=== PATIENT | female | born 1955 | race Caucasian/White ===

== ENCOUNTER → 2023-11-03 10:32 | Outpatient (REF) | payer MEDICARE, OTHER, SELFPAY | LOC: HWRAD 10:32 | PROVIDERS: ATTENDING PHYSICIAN Internal Medicine Endocrinology, Diabetes & Metabolism; FAMILY PHYSICIAN Family Medicine | DX: Z85.850 Personal history of malignant neoplasm of thyroid (principal); E03.9 Hypothyroidism, unspecified | CPT/HCPCS: 76536 ==

== ENCOUNTER → 2024-07-04 16:18 | Outpatient (REF) | payer MEDICARE, OTHER, SELFPAY | LOC: WDC 16:18 | PROVIDERS: ATTENDING PHYSICIAN Obstetrics & Gynecology Gynecology; FAMILY PHYSICIAN Family Medicine | DX: Z12.31 Encounter for screening mammogram for malignant neoplasm of breast (principal) | CPT/HCPCS: 77063; 77067 ==

== ENCOUNTER → 2024-08-06 12:00 | Outpatient (REF) | payer MEDICARE, OTHER, SELFPAY | LOC: DHSLP 12:00 | PROVIDERS: ATTENDING PHYSICIAN Internal Medicine; FAMILY PHYSICIAN Internal Medicine Cardiovascular Disease | DX: G47.33 Obstructive sleep apnea (adult) (pediatric) (principal) | CPT/HCPCS: 95800 ==

== ENCOUNTER 2024-10-05 14:19 | Inpatient (IN) | payer MEDICARE, OTHER, SELFPAY ==
[2024-10-05] VITALS (35 sets, daily range): BP systolic 166–234; BP diastolic 72–153; PULSE 105; BMI 37.8
--- NOTE | 2024-10-05 11:33 | ED.GENMED ---
History of Present Illness
<PK Bach - Last Filed: 10/05/24 15:47>
General
Chief Complaint: Musculo-Skeletal Complaint
Source: patient
Exam Limitations: none
Time Seen by Provider: 10/05/24 11:24
Nursing documentation reviewed up to this point in time: agreed with
History of Present Illness
History of Present Illness:
Patient is a 69-year-old female brought by EMS. Patient was walking down the steps twisted her left leg and complains of left knee pain. Patient denies actually falling denies hitting her head. Patient complains of a lot of pain in her left knee.
Past History
<PK Bach - Last Filed: 10/05/24 15:47>
Past History
ED Past Medical History: Other (Hypertension, , carpal tunnel release �2)
Social History
Tobacco: Non-smoker
Alcohol: None
Family History
Family History: Other (Father with breast cancer, dementia, hypertension, sister with lung cancer)
Review of Systems
<PK Bach - Last Filed: 10/05/24 15:47>
Review of Systems
Allergies reviewed?: Yes
All Other Systems: ROS reviewed and negative except as documented in HPI and ROS
Constitutional: Reports no symptoms
Respiratory: Reports no symptoms
Cardiac: Reports no symptoms
ABD/GI: Reports no symptoms
Musculoskeletal: Reports other (left knee pain )
Skin: Reports no symptoms
Neurological: Reports no symptoms
Psychiatric: Reports no symptoms
Phy Exam
<PK Bach - Last Filed: 10/05/24 15:47>
General Physical Exam
General Presentation: mild distress
General age: appears stated age
General Skin: warm and dry
General Habitus: obese
General Hydration: appears well hydrated
Neurological Exam
Neurological Exam: alert and oriented x3
Musculoskeletal Exam
Musculoskeletal Exam: other (Obvious deformity to left lower extremity/knee no lacerations or abrasions; strong distal PT/DP pulses normal distal sensation)
Skin Exam
Skin Exam: normal color and warm/dry
Psychiatric Exam
Psychiatric Exam: normal mood/affect
Course
<PK Bach - Last Filed: 10/05/24 15:47>
Orders/Labs/Results
Orders:
Orders
10/05/24 11:24
CR Knee - Left 1 Or 2 Views Urgent
Comment:
Reason For Exam: portable left knee
10/05/24 11:32
HYDROmorphone [Dilaudid] 1 mg IV NOW STA
10/05/24 11:52
ASA Classification Routine
Knee Immobilizer Left-Treatmen ONCE
Propofol [Diprivan] 100 mg IV NOW STA
10/05/24 12:02
CR Knee - Left 1 Or 2 Views Urgent
Comment: portable
Reason For Exam: post reduction
10/05/24 12:29
Propofol [Diprivan] 20 ml .ROUTE .STK-MED
10/05/24 13:10
ORTHOPEDIC CONSULT Urgent
Consulting Provider: Juan Luis Brennan
Was physician already notified: Yes
10/05/24 13:18
Propofol [Diprivan] 20 ml .ROUTE .STK-MED
10/05/24 13:19
CBC/With Diff [Complete Blood Count/With Diff] Urgent
CMP [Comprehensive Metabolic Panel] Urgent
10/05/24 14:07
Admit/Transfer Patient As Directed
Co-Sign Provider:
Level of Care: Inpatient admission
Assign to:: Medical/Surgical
Physician / Group: belgica sinha
Diagnosis: fall left tib fib, knee dislocation
Reason for Hospitalization: fall left tib fib, knee dislocation
Expected length of stay greater than two midnights?: Yes
ELOS- Estimated Length of Stay in days: 3
I certify the patient meets the requirements for IP care: Yes
Code Status As Directed
Resuscitation Status: Full Code
10/05/24 14:11
PRN Pain Medication Management As Directed
May give lesser potent ordered pain med per pt: Yes
preference::
Protocol:: Medication orders for pain may be administered in a
manner that supports deferring to patient preference
when the pt is:
- Requesting an ordered lesser potent pain medication.
Least to most potent pain medications are defined
as: acetaminophen < NSAID < tramadol < opioids
(morphine, oxycodone, hydromorphone).
- Requesting a lesser dose of the same medication IF
ORDERED.
- Requesting a less intrusive route of administration
if both routes are prescribed by the provider (PO <
IV).
Abnormal Lab Results
10/05/24
13:19
WBC 12.5 H 10^3/uL
(4.8-10.8)
MPV 10.6 H fL
(7.4-10.4)
Abs Immat Gran (auto) 0.1 H 10^3/uL
(0-0.05)
Absolute Neuts (auto) 10.0 H 10^3/uL
(1.4-6.5)
Absolute Monos (auto) 0.8 H 10^3/uL
(0.1-0.6)
Neutrophils % 80.1 H %
(42.2-75.2)
Lymphocytes % 12.5 L %
(20.5-51.1)
Glucose 112 H mg/dl
(70-99)
10/05/24 13:19
10/05/24 13:19
Vital Signs
Initial and Last Documented VS:
Initial Vital Signs
Temp Pulse Resp
98.7 F 88 20
10/05/24 11:19 10/05/24 11:19 10/05/24 11:19
Last Documented Vital Signs
Temp Pulse Resp BP Pulse Ox
98.5 F 98 20 168/78 99
10/05/24 14:15 10/05/24 14:15 10/05/24 14:15 10/05/24 14:15 10/05/24 14:15
Broomcorn Scraper consulted with Physician
Broomcorn Scraper consulted with physician?: Yes
Name of Physician Consulted: Thor
<José Manuel Mcrae, DO - Last Filed: 10/05/24 12:07>
Orders/Labs/Results
Orders:
Orders
10/05/24 11:24
CR Knee - Left 1 Or 2 Views Urgent
Comment:
Reason For Exam: portable left knee
10/05/24 11:32
HYDROmorphone [Dilaudid] 1 mg IV NOW STA
10/05/24 11:52
ASA Classification Routine
Knee Immobilizer Left-Treatmen ONCE
Propofol [Diprivan] 100 mg IV NOW STA
10/05/24 12:02
CR Knee - Left 1 Or 2 Views Urgent
Comment: portable
Reason For Exam: post reduction
10/05/24 12:29
Propofol [Diprivan] 20 ml .ROUTE .STK-MED
10/05/24 13:10
ORTHOPEDIC CONSULT Urgent
Consulting Provider: Juan Luis Brennan
Was physician already notified: Yes
10/05/24 13:18
Propofol [Diprivan] 20 ml .ROUTE .STK-MED
10/05/24 13:19
CBC/With Diff [Complete Blood Count/With Diff] Urgent
CMP [Comprehensive Metabolic Panel] Urgent
10/05/24 14:07
Admit/Transfer Patient As Directed
Co-Sign Provider:
Level of Care: Inpatient admission
Assign to:: Medical/Surgical
Physician / Group: belgica sinha
Diagnosis: fall left tib fib, knee dislocation
Reason for Hospitalization: fall left tib fib, knee dislocation
Expected length of stay greater than two midnights?: Yes
ELOS- Estimated Length of Stay in days: 3
I certify the patient meets the requirements for IP care: Yes
Code Status As Directed
Resuscitation Status: Full Code
10/05/24 14:11
PRN Pain Medication Management As Directed
May give lesser potent ordered pain med per pt: Yes
preference::
Protocol:: Medication orders for pain may be administered in a
manner that supports deferring to patient preference
when the pt is:
- Requesting an ordered lesser potent pain medication.
Least to most potent pain medications are defined
as: acetaminophen < NSAID < tramadol < opioids
(morphine, oxycodone, hydromorphone).
- Requesting a lesser dose of the same medication IF
ORDERED.
- Requesting a less intrusive route of administration
if both routes are prescribed by the provider (PO <
IV).
Abnormal Lab Results
10/05/24
13:19
WBC 12.5 H 10^3/uL
(4.8-10.8)
MPV 10.6 H fL
(7.4-10.4)
Abs Immat Gran (auto) 0.1 H 10^3/uL
(0-0.05)
Absolute Neuts (auto) 10.0 H 10^3/uL
(1.4-6.5)
Absolute Monos (auto) 0.8 H 10^3/uL
(0.1-0.6)
Neutrophils % 80.1 H %
(42.2-75.2)
Lymphocytes % 12.5 L %
(20.5-51.1)
Glucose 112 H mg/dl
(70-99)
10/05/24 13:19
10/05/24 13:19
Vital Signs
Initial and Last Documented VS:
Initial Vital Signs
Temp Pulse Resp
98.7 F 88 20
10/05/24 11:19 10/05/24 11:19 10/05/24 11:19
Last Documented Vital Signs
Temp Pulse Resp BP Pulse Ox
98.5 F 98 20 168/78 99
10/05/24 14:15 10/05/24 14:15 10/05/24 14:15 10/05/24 14:15 10/05/24 14:15
Procedures
<PK Bach - Last Filed: 10/05/24 15:47>
Moderate Sedation
ASA Risk Score: Class III
Chart and allergies reviewed: Yes
Consent for anesthesia obtained: Yes
Time out completed (validating right patient & procedure): Yes
Moderate Sedation Start Time(when first medication is given): 11:58
History of difficult intubation: No
Airway free of obstruction: Yes
Patient has a gag reflex: Yes
Patient is able to open mouth: Yes
Patient has no dentures: Yes
Patient has no loose teeth: Yes
Medication administered by Provider during Moderate Sedation: IV Propofol (mg)
Total dose administered: 250
Time drug administered: 11:59
Moderate Sedation Procedure End Time: 12:50
Comment: 2nd sedation time Time out 1321; 1322:100 mg propofol given end time 1345
Joint/Fracture Reduction
Left Knee:
Indication for procedure:: knee dislocation acute lateral dislocation of left tibia fibula and patell
Procedure completed by: DR Mcrae /myself assisting
Consent form signed: Yes
If no, reason: Emergency procedure
Joint reduced: with anesthesia sedation
Injury was: closed
Further treatement: needs further treatment
Post reduction exam: stable
Capillary Refill: normal
Normal distal neurovascular exam?: Yes
<PK Bach - Last Filed: 10/05/24 15:47>
MDM/Problems Addressed
Differential Diagnosis Includes:
Not limited to knee dislocation, patellar dislocation
MDM/Problems Addressed:
11:40: Patient is a 69-year-old female who was walking down her steps twisted her left knee presents to the ER and discomfort. She did not actually fall.
Pt very uncomfortable with obvious deformity to left knee, portable x-ray ordered will give IV pain medication . + strong distal pulses w/ intact sensation
11:43: X-ray done shows lateral knee dislocation. ED physician at bedside viewed x-ray at bedside. ED physician d/c w/ ortho online content coordinator and vascular. Will plan for sedation and reduction.
Moderate sedation done with ED physician. xrays reviewed with ortho , still will need adtional reduction. ortho will come and attempt further reduction
1334: Patient was again sedated and orthopedic Dr. Brennan at bedside however will need to take patient to ER for further reduction and stabilization of this knee. Patient remains with strong pulses throughout the ER stay with warm foot and pink
toes pink foot. Vascular surgeon Dr. Ford also at bedside
<PK Bach - Last Filed: 10/05/24 15:47>
*Radiology
Radiology exam reviewed: radiology read reviewed
*Pulse Oximetry
Patient hypoxic: no
*Critical Care Note
Total Time (30-74mins, 75-104mins- exclusive of procedures): Not Applicable
<PK Bach - Last Filed: 10/05/24 15:47>
Patient Management
Discussion with other providers: Hand Singer (Orthopedic doctor DR Brennan and vascular DR Ford )
ED Attending Note
<PK Bach - Last Filed: 10/05/24 15:47>
-
Portions of this chart may have been created with voice recognition software.� Occasional wrong word or��sound alike� substitutions may have occurred due to the inherent limitations of voice recognition software.
<José Manuel Mcrae DO - Last Filed: 10/05/24 12:07>
ED Attending Note
Patient seen and examined by attending physician: Yes
I performed the substantive portion of visit, reviewed & personally made and approve the management plan that is documented in note by myself or RYDER.: Yes
ED Attending Note:
Seen with MEDICAL COLLECTOR examined independently patient with a twisting injury with a lateral knee dislocation has a strong pulse multiple drug allergies consent for reduction completed by myself
Discharge Plan
Departure
Patient Disposition: OR
Date of Disposition: 10/05/24
Time of Disposition: 13:39
Admit to: OR
Admit to doctor: mallory
Presentation/result/management discussed w/ accepting MD/DO: mallory
Patient with high blood pressure during this ER visit?: Yes
Condition: Fair
Covid-19: Not Applicable
Discharge Problem:
acute lateral knee dislocation
Interventions
Interventions:
*Risk Screen - Suicide Last Done: 10/05/24 11:19
*General Assessment Last Done: 10/05/24 11:19
*Neglect/Abuse Screening Last Done: 10/05/24 11:19
*ED COVID-19 Vaccine History Last Done: 10/05/24 11:30
*Nursing Disposition Last Done: 10/05/24 15:17
ED-Musculoskeletal Assessment Last Done: 10/05/24 11:30
ED- Neurological Assessment Last Done: 10/05/24 11:30
ED-Skin Assessment Last Done: 10/05/24 11:30
Discharge Date and Time
Discharge Date/Time: 10/05/24 15:18
[2024-10-05] MEDS: DILAUDID 1 MG IV ×2 (11:36→23:44)
[2024-10-05 13:27] LABS: % Basophils 0.3 % (0-2); % Eosinophils 0.5 % (0-6); % Immature Granulocytes 0.4 % (0-0.5); % Lymphocytes 12.5 % (20.5-51.1); % Monocytes 6.2 % (1.7-9.3); % Neutrophils 80.1 % (42.2-75.2); Absolute Eosinophils 0.1 10^3/uL (0-0.7); Absolute Immature Granulocytes 0.1 10^3/uL (0-0.05); Absolute Lymphocytes 1.6 10^3/uL (1.2-3.4); Absolute Monocytes 0.8 10^3/uL (0.1-0.6); Hematocrit 42.8 % (37.0-47.0); Hemoglobin 14.3 g/dL (12.0-16.0); Mean Corp Hgb Conc. 33.4 g/dL (33.0-37.0); Mean Corpuscular Hgb 28.1 pg (27.0-31.0); Mean Corpuscular Volume 84.1 fL (81.0-99.0); Mean Platelet Volume 10.6 fL (7.4-10.4); Nucleated Red Blood Cells % 0 %; Platelet Count 180 10^3/uL (130-400); Red Blood Cell Count 5.09 10^6/uL (4.20-5.40); White Blood Cell Count 12.5 10^3/uL (4.8-10.8)
--- NOTE | 2024-10-05 13:38 | HPS.HSE ---
Family Physician
-
Family Physician: NOT KNOW UNKNOWN - PT DOES
Chief Complaint
-
Fall down 12 steps left knee/tib-fib dislocation
History of Present Illness
69-year-old female, who lives alone in a two-story home who states this morning she was gathering her laundry she was at the top of the stairs some of the laundry fell out of the basket looped behind her leg causing her to fall down 10-12 steps
landing with her knee twisted and behind her on the floor. She states she had her cell phone in the back of her pocket where she was able to reach and call her son for help. This was approximately at 1030 this a.m. In the ER she was noted to have
dislocation of the left tibia, fibula and patella with attempted reduction x 2 unsuccessful. She will be taken to the OR for open reduction with external fixation. She denies headache, neck pain, bilateral wrist pain, back pain, chest pain,
palpitations, cough, shortness of breath, abdominal pain, nausea, vomiting, diarrhea, urinary symptoms. She currently has her left leg and a left knee Velcro brace with sensation intact to left lower extremity, +2 dorsal pedal pulse present skin
pink, warm.
She has PMH of HTN, HLD, GERD, colitis, uterine fibroids, thyroid nodule/thyroid CA January 2021 with left thyroidectomy of left side, March 2022 thyroidectomy of right side due to cancerous nodule resulting in complete thyroidectomy, Anxiety,
arthritis, obesity class I
Medical History
Past Medical History
Past Medical History: Reports Other
Additional Past Medical History:
HTN
GERD
colitis
uterine fibroids
anxiety
arthritis
Left thyroidectomy nodule removal 02/23/2021 secondary to thyroid cancerous nodule
Past Surgical History: Reports Other
Additional Past Surgical History:
section times 10/20/1986
Bilateral CTR
Left thyroidectomy nodule removal 02/23/2021 secondary to thyroid cancerous nodule
Social History
Tobacco: Non-smoker
Alcohol: None
Personal: Single
Living: Alone
Employment: Retired
Family History
Family History: Not pertinent
Allergies / Home Medications
Allergies reflects when Allergies were last updated in [facility].
Home Medications with original date entered in [facility]
Allergy/Medication List:
Allergies
Allergy/AdvReac Type Severity Reaction Status Date / Time
cefaclor [From Ceclor] Allergy Severe ITCHING Verified 10/05/24 11:19
AND HIVES
Penicillins Allergy Severe ITCHING Verified 10/05/24 11:19
AND HIVES
Sulfa (Sulfonamide Allergy Severe ITCHING Verified 10/05/24 11:19
Antibiotics) AND HIVES
levofloxacin [From Levaquin] Allergy Mild Itching Verified 10/05/24 11:19
vancomycin [From Vancocin] Allergy Mild RASH AND Verified 10/05/24 11:19
ITCHING
amoxicillin [From Augmentin] Allergy ITCHING Verified 10/05/24 11:19
AND HIVES
cephalexin [From Keflex] Allergy ITCHING Verified 10/05/24 11:19
AND HIVES
clavulanic acid Allergy ITCHING Verified 10/05/24 11:19
[From Augmentin] AND HIVES
shellfish derived Allergy ITCHING Verified 10/05/24 11:19
AND HIVES
Home Medications
ibuprofen 200 mg tablet 200 mg PO Q6HPRN PRN mild pain 02/05/21
levothyroxine 112 mcg tablet 112 mcg PO DAILY 10/05/24
lisinopril 20 mg tablet 20 mg PO BID 10/05/24
rosuvastatin 10 mg tablet 10 mg PO DAILY 10/05/24
Review of Systems
-
History Source: Patient and Family (Son at bedside)
A 12 point ROS was completed and negative except as noted: Yes
Constitutional: Denies Fever or Chills
EENT: Denies Sore Throat or Runny Nose
Respiratory: Denies Cough or Trouble Breathing
Cardiac: Denies Chest Pain, Palpitations or Syncope
Abdomen/GI: Denies Abdominal Pain, Nausea, Vomiting, Diarrhea, Constipated or Bloody Stools
: Denies Dysuria, Frequency, Flank Pain or Urgency
Musculoskeletal: Reports Joint Pain and Edema (Left knee swelling, left leg in a left knee Velcro brace with sensation intact to left lower extremity, +2 dorsal pedal pulse present skin pink, warm)
Skin: Denies Itching or Rash
Neurological: Denies Dizzy, Headache or Weakness
Endocrine: Reports No Symptoms
Hematologic/Lymphatic: Reports No Symptoms
Psych: Reports Calm
Physical Exam
Vital Signs
Vital Signs
Temp Pulse Resp BP Pulse Ox
98.6 F 82 14 187/98 100
10/05/24 11:58 10/05/24 12:30 10/05/24 12:30 10/05/24 12:30 10/05/24 12:30
Physical Exam
General: Comfortable, Conversant and Pain (Left knee); No Fever or Chills
HEENT: NormoCephalic, Anicteric, Moist mucous membranes, PERRLA, [place] Conjunctivae, No Ptosis and Neck Nontender
Respiratory: Clear; No Wheezes, Rales, Rhonchi or Crackles
Cardiac: S1/S2 and Regular Rhythm
Breast: Deferred by me
GI: Soft, Non Tender, Non Distended, Normal Bowel Sounds and No Hepatosplenomegaly
Rectal: Deferred by Provider
Genito-urinary: Deferred by me
Musculoskeletal: No Clubbing, No Cyanosis, Edema, Left Lower Extremity (Left knee swelling, left leg in a left knee Velcro brace with sensation intact to left lower extremity, +2 dorsal pedal pulse present skin pink, warm) and Other (Left knee
swelling, left leg in a left knee Velcro brace with sensation intact to left lower extremity, +2 dorsal pedal pulse present skin pink, warm); No Edema, Left Upper Extremity, Edema, Right Upper Extremity or Edema, Right Lower Extremity
Skin: Warm and Dry; No Rash
Neuro: No Sensory Deficits and Other (Drowsy post Propofol but oriented x 3,Left knee swelling, left leg in a left knee Velcro brace with sensation intact to left lower extremity, +2 dorsal pedal pulse present skin pink, warm); No Slurred Speech,
Tremors or Sedated
Psych: Calm
Laboratory Results
-
10/05/24 13:19
Impression/Plan
-
Impression/plan:
Admit to MedSurg
#Acute lateral dislocation left tibia, fibula, patella
-Reduction in ER with propofol and Dilaudid
-Consult Ortho
-N.p.o. for OR today for open reduction and external fixation
-Consult PT/OT/Case management as patient lives alone in two-story home
X-ray knee post reduction:
1. Persistent severe lateral subluxation of the proximal tibia with respect to the distal femoral condyles (improved following reduction of the lateral knee dislocation).
2. Severe patella baja.
3. Severe diffuse anterior soft tissue swelling and subcutaneous edema.
#HTN�benign
BP 187/98
-Continue lisinopril 20 mg twice daily
#thyroid nodule/thyroid CA January 2021 with left thyroidectomy of left side, March 2022 thyroidectomy of right side due to cancerous nodule resulting in complete thyroidectomy.
#HLD
-Continue Crestor
#GERD
-No reported meds
#Anxiety
-No reported meds
# Obesity class I�BMI 37.8
Affects all aspects of care
Recommend low-fat diet
Other PMH:
#Colitis
#Uterine fibroids
# arthritis
DVT prophylaxis
Aspirin 325 mg daily
Full code
[2024-10-05 13:46] LABS: ALT (SGPT) 19 U/L (0-35); AST (SGOT) 28 U/L (14-36); Albumin 4.1 g/dl (3.5-5.0); Alkaline Phosphatase 99 U/L (38-126); Blood Urea Nitrogen 14 mg/dl (7-17); Calcium 8.9 mg/dl (8.4-10.2); Carbon Dioxide 25 mmol/L (22-30); Chloride 107 mmol/L (98-107); Estimated Creatinine Clearance 90 ml/min; Glucose 112 mg/dl (70-99); Potassium 4.2 mmol/L (3.5-5.1); Sodium 140 mmol/L (135-145); Total Bilirubin 0.4 mg/dl (0.2-1.3); eGFR > 60.00
--- NOTE | 2024-10-05 13:54 | W.PN.UPDATE ---
Update Note
Progress Note Update
This note serves as an addendum to the H&P by financial services director RYDER
Lora RODOLFO
HPI
69F non smoker [facility] HX HTN seen at ER for evalaution of Lt knee pain
- preceeded by twisted the Lt leg while walking down the steps
- Immediately felt the severe Lt knee pain
- Patient denies actually falling denies hitting her head. P
- very anxious.
- No prior HX dislocation of knee
Failed 2 attempted reduction under sedation at ER
Planning for OR and open reduction per Ortho
PHX
, carpal tunnel release �2
Reviewed VS: afebrile BP 187/98
PE
Gen: Obese, in acute pain distress
HEENT: anicteric
Neck: supple
Lungs: CTA
Cor: RRR S1 S2
Abdomen: soft benign
TRANSITION TEACHER: AAO3 , NFND
MS: Lt knee;under immobilizer, swollen Lt frontal knees
Psych: appropriately anxious du e to acute pain
Data
WCC 12.5
Lt Knee XR
1. Persistent severe lateral subluxation of the proximal tibia with respect to the distal femoral condyles (improved following reduction of the lateral knee dislocation).
2. Severe patella baja.
3. Severe diffuse anterior soft tissue swelling and subcutaneous edema.
Lt Knee XR: ACUTE LATERAL DISLOCATION of the LEFT TIBIA, FIBULA, and PATELLA.
NO PRIOR hospitalist admission:
ASSESSMENT & PLAN
Acute dislocation of the Lt tibia , fibular and patella
Asso, with acute severe pain and deformity
Acute gait dysfunction
Intact neurovascular component per ER attd by Vascular evalaution
- Narcotic pain control PRN
- plan for sedation at OR for open reduction
Systolic HTN due to severe pain
- adequate pain control
- cont PC ANALYST Lisinopril
HX Total thyroidectomy for nodule POS fr CA
- cont. PC ANALYST LT4
DVT Px: full dose ASA
Full code
IP MS
--- NOTE | 2024-10-05 14:20 | CON.ORTHO ---
Consultation
-
Date/Time Consultation Requested: 05OCT2024 11:45
Date/Time Consultation Performed: 05OCT2024 13:40
Requesting Provider: José Manuel Mcrae DO
Performing Provider: Juan Luis Brennan MD
Reason for Consultation: left knee dislocation
Consultation - Orthopedics
History
Patient is a 69F complaining of several hours of left knee pain. She was carrying laundry downstairs when she slipped on a sweater and fell down 3 stairs, twisting her knee. She reported immediate pain and inability to ambulate. She was brought to
[facility] ER where she was diagnosed with a left knee dislocation. She was sedated and reduction was attempted, but this was unsuccessful. Orthopaedics was consulted for attempted reduction, but this was unsuccessful as well. Per report
from the emergency room and vascular surgery, her ÓSCAR was 1 and she had palpable DP and PT pulses.She denies numbness and tingling in her LLE, she states she has full motion of her toes, and does not have pain out of proportion to the injury. She
denies the use of blood thinners and reports hypertension and hypercholesteremia as her only medical problems.
Physical exam:
swelling and dimpling of the skin about the knee
posterior subluxation of the knee
no palpable tension of the patella tendon, suspicious for a patella tendon rupture
5/5 EHL/FHL
Anterior and posterior drawer positive
no end point with varus and valgus stress
palpable DP/PT pulses, brisk capillary refill, foot warm and well perfused
ÓSCAR: 200/190=1.05
sensation intact in all dermatomes
XRay examination demonstrates an external rotation dislocation of the knee
-after attempted reduction, the knee remain posterolaterally subluxed via Xray
Allergies / Home Medications
Allergy/AdvReac Type Severity Reaction Status Date / Time
cefaclor [From Ceclor] Allergy Severe ITCHING Verified 10/05/24 11:19
AND HIVES
Penicillins Allergy Severe ITCHING Verified 10/05/24 11:19
AND HIVES
Sulfa (Sulfonamide Allergy Severe ITCHING Verified 10/05/24 11:19
Antibiotics) AND HIVES
levofloxacin [From Levaquin] Allergy Mild Itching Verified 10/05/24 11:19
vancomycin [From Vancocin] Allergy Mild RASH AND Verified 10/05/24 11:19
ITCHING
amoxicillin [From Augmentin] Allergy ITCHING Verified 10/05/24 11:19
AND HIVES
cephalexin [From Keflex] Allergy ITCHING Verified 10/05/24 11:19
AND HIVES
clavulanic acid Allergy ITCHING Verified 10/05/24 11:19
[From Augmentin] AND HIVES
shellfish derived Allergy ITCHING Verified 10/05/24 11:19
AND HIVES
�Medication �Instructions �Recorded
ibuprofen 200 mg tablet 200 mg PO Q6HPRN PRN mild pain 02/05/21
levothyroxine 112 mcg tablet 112 mcg PO DAILY 10/05/24
lisinopril 20 mg tablet 20 mg PO BID 10/05/24
rosuvastatin 10 mg tablet 10 mg PO DAILY 10/05/24
Vital Signs / Lab Results
Temp Pulse Resp BP Pulse Ox
98.5 F 92 16 185/79 100
10/05/24 14:00 10/05/24 14:00 10/05/24 14:00 10/05/24 14:00 10/05/24 14:00
10/05/24 13:19
10/05/24 13:19
Assessment / Plan
Ms Tejada is a 69F with a left knee dislocation, suspected KD4 with injury to medial and lateral collateral ligaments and anterior and posterior cruciate ligaments with suspected patella tendon rupture
-due to the inability to reduce the knee with closed means, the patient will be brought to the operating room for open reduction and external fixation
-she will be admitted overnight for evaluation and PT evaluation in the morning
-she will be NWB to the E, and remain in the ex-fix for approximately 6 weeks and require ASA 325MG QD for DVT PPX
-pending OR today, consented, remain NPO, appreciate medical recommendations and risk stratification
-if ABIs become abnormal, recommend CT angio of the LLE and vascular surgery consult
--- NOTE | 2024-10-05 17:04 | W.IMMPOSTOP ---
Surgical Immed Post Op Note
-
Primary Surgeon: Juan Luis Brennan MD
Assisting Surgeon: Enedina coffey PA-C
Pre-op Diagnosis: left knee dislocation, possible patella tendon rupture
Post-op Diagnosis: left knee dislocation
Procedure Performed: closed reduction external fixation left knee
Anesthesia Type: general
Specimen / Cultures: none
Estimated Blood Loss: 5mL
Complications: none apparent
Operative Findings: KD 4, intact patella tendon
Implants: [place] Shabazz 3 external fixation system; 5.0mm Francis pins x4; 350mm bars x2; 150mm bar x1
Operative dictation number: [id number]
[2024-10-05] MEDS: DEMEROL 12.5 MG IV ×2 (17:09→17:57)
--- NOTE | 2024-10-05 18:28 | PTCARENOTE ---
Pt arrived to [facility] from PACU s/p closed reduction external fixation of the L knee. L knee external fixation intact, cintia wrap C/D/I, NV intact, +DP pulses. Pt AAOx3, and denies pain at this time. Cont. pulse ox attached, patient satting 95% on 2L
NC. Oriented to call goodwin and room, bed locked and in lowest position, call goodwin within reach.
[2024-10-05] MEDS: ASPIRIN 325 MG PO (20:06)
[2024-10-05] MEDS: ZESTRIL 20 MG PO (20:06)
[2024-10-05] MEDS: TYLENOL 650 MG PO (20:21)
[2024-10-05] MEDS: TRANDATE 52 MG IV (23:23)
[2024-10-06] VITALS (9 sets, daily range): BP systolic 143–209; BP diastolic 77–98; PULSE 90–106; O2SAT 94–99
[2024-10-06] MEDS: SYNTHROID 112 MCG PO (04:12)
[2024-10-06] MEDS: TYLENOL 650 MG PO ×3 (04:12→12:23)
[2024-10-06 05:13] LABS: % Basophils 0.1 % (0-2); % Immature Granulocytes 0.3 % (0-0.5); % Lymphocytes 10.8 % (20.5-51.1); % Monocytes 6.3 % (1.7-9.3); % Neutrophils 82.5 % (42.2-75.2); Absolute Monocytes 0.6 10^3/uL (0.1-0.6); Absolute Neutrophils 7.6 10^3/uL (1.4-6.5); Hematocrit 40.2 % (37.0-47.0); Hemoglobin 13.6 g/dL (12.0-16.0); Mean Corp Hgb Conc. 33.8 g/dL (33.0-37.0); Mean Corpuscular Hgb 28.2 pg (27.0-31.0); Mean Corpuscular Volume 83.2 fL (81.0-99.0); Mean Platelet Volume 10.8 fL (7.4-10.4); Nucleated Red Blood Cells % 0 %; Platelet Count 193 10^3/uL (130-400); Red Blood Cell Count 4.83 10^6/uL (4.20-5.40); Red Cell Dist. Width 11.9 % (11.5-14.5); White Blood Cell Count 9.2 10^3/uL (4.8-10.8)
[2024-10-06 05:36] LABS: Blood Urea Nitrogen 16 mg/dl (7-17); Calcium 8.6 mg/dl (8.4-10.2); Carbon Dioxide 27 mmol/L (22-30); Chloride 102 mmol/L (98-107); Estimated Creatinine Clearance 78 ml/min; Glucose 137 mg/dl (70-99); Potassium 4.3 mmol/L (3.5-5.1); Sodium 138 mmol/L (135-145); eGFR > 60.00
--- NOTE | 2024-10-06 07:09 | W.PN.HOSP.TC ---
Today's Communication/Plan
-
PT/OT, Aspirin DVT prophylaxis, PT/OT, Acute Rehab placement
Blood pressure and pain control
Assessment / Plan
Assessment / Plan
Physical Exam
General: Not in acute distress
HEENT: Normocephalic
Respiratory: Clear to Auscultation Bilaterally
Cardiac: S1/S2 and Regular Rhythm
GI: Soft, Non Tender, Non Distended, Normal Bowel Sounds
Musculoskeletal: No Cyanosis. LLE surgical dressings in place. LLE appears neurovascularly intact.
Neuro: AAOx3
Psych: Calm
Assessment/Plan
#Acute lateral dislocation left tibia, fibula, patella status post closed reduction, external fixation of left knee for left knee dislocation under the direction of Dr. Brennan
-Failed 2 attempts at reduction under sedation at ER therefore needed to go to the operating room
-Continue Aspirin 325mg daily for DVT prophylaxis x4 weeks
-Non weight bearing to left leg
-PT/OT
-Continue with pain management as needed
-Reinforce dressings as needed
-MRI left knee pending (Exfix is compatible with MRI)
#Hypertension
-Concern that this is being worsened by anxiety and pain
-Continue lisinopril 40 mg daily
-Added Amlodipine 5 mg BID
-As needed Hydralazine
-Low sodium diet
#Thyroid nodule/thyroid CA January 2021 with left thyroidectomy of left side, March 2022 thyroidectomy of right side due to cancerous nodule resulting in complete thyroidectomy.
-Continue Levothyroxine
#Hyperlipidemia
-Continue Crestor
#GERD
-No reported meds
#Anxiety
-No reported meds
#Obesity class I�BMI 37.8
Affects all aspects of care
Recommend low-fat diet
Additional Past Medical History
#Colitis
#Uterine fibroids
#Arthritis
DVT Prophylaxis: Aspirin 325 mg daily
Code Status: Full code
Anticipated Discharge: 24 - 48 hours
Subjective/Interval History
-
Date of Service: October 06, 2024
Patient was seen and examined. She denied any complaints.
Objective Data
-
Labs:
Laboratory Results
10/06/24
04:59
WBC 9.2
Hgb 13.6
Hct 40.2
Plt Count 193
Sodium 138
Potassium 4.3
Chloride 102
Carbon Dioxide 27
BUN 16
Creatinine 0.8
Glucose 137 H
Calcium 8.6
Vital Signs:
Vital Signs
Temp Pulse Resp BP Pulse Ox
97.8 F 88 16 183/94 96
10/06/24 03:35 10/06/24 03:35 10/06/24 03:35 10/06/24 03:35 10/06/24 03:35
I&O
10/05/24 10/06/24 10/07/24
06:59 06:59 06:59
Intake Total 540 / 540
Output Total 1700 / 1700
Balance -1160 / -1160
[2024-10-06] MEDS: ASPIRIN 325 MG PO (07:59)
[2024-10-06] MEDS: CRESTOR 10 MG PO (07:59)
[2024-10-06] MEDS: NORVASC 5 MG PO ×2 (08:04→19:41)
[2024-10-06] MEDS: MIRALAX PO (08:07)
[2024-10-06] MEDS: ZESTRIL 20 MG PO ×2 (08:09→15:24)
--- NOTE | 2024-10-06 08:48 | W.PN.ORTHO ---
Today's Communication / Plan
-
POD#1 closed reduction, external fixation of left knee for left knee dislocation under the direction of Dr. Brennan
--Non weight bearing to left leg
--PT/OT as able
--Continue with pain management as needed
--Reinforce dressings as needed
--Recommend aspirin 325mg daily for DVT prophylaxis x4 weeks
--MRI left knee pending. Exfix is compatible with MRI
--Orthopedics will continue to follow
Assessment
.
Distal Motor Intact: Yes
Dressing:
Clean, dry and intact.
Plan
.
Surgery / Date: Left knee spanning exfix 10/05/24 (Mika)
DVT Prophylaxis: Aspirin
Activity:
Out of bed.
PT/OT
Subjective
.
.:
Patient resting comfortably in bed this morning. She reports that her pain is well controlled.
Vital Signs and Labs
.
Vital Signs and Labs:
Lab Results
10/06/24 04:59
10/06/24 04:59
Temp Pulse Resp BP Pulse Ox
98.3 F 87 12 143/77 94
10/06/24 07:42 10/06/24 07:42 10/06/24 07:42 10/06/24 08:09 10/06/24 07:42
Physical Exam
-
Directed exam of LLE reveals surgical dressings in place. no strikethrough. able to plantarflex and dorsiflex the ankle. good PT and DP pulses. sensation intact to light touch. cap refill <2secs. ÓSCAR 1.1
--- NOTE | 2024-10-06 16:11 | CM ---
Met with pt and her son at bedside
Pt reports she lives alone in a 2 story home; 2 steps to enter, 20 steps to 2nd fl
Independent at baseline, employed PT
DME - none
SNF/HH - no past hx
PCP - James Clinton
Pharm - Guy
PT/OT - recs SNF. Discussed with pt, given PAC list to review with family
Plan - anticipate SNF when bed obtained and medically ready
[2024-10-06] MEDS: TYLENOL 1000 MG PO ×2 (16:37→23:25)
[2024-10-06] MEDS: APRESOLINE 5 MG IV ×2 (16:49→21:09)
[2024-10-06] MEDS: ROXICODONE 5 MG PO (22:23)
[2024-10-07] MEDS: FLUSH (NSS) 2 FLUSH IV (02:52)
[2024-10-07] MEDS: APRESOLINE 5 MG IV ×2 (02:52→12:28)
[2024-10-07 03:00] VITALS: BP 183/103
[2024-10-07] MEDS: SYNTHROID 112 MCG PO (06:33)
[2024-10-07 07:30] VITALS: BP 170/88
--- NOTE | 2024-10-07 07:45 | PTCARENOTE ---
MRI cancelled by [facility] as Ex Fix not compatible with MRI per radiology; patient notified.
[2024-10-07] MEDS: ZESTRIL 40 MG PO (08:02)
[2024-10-07] MEDS: ASPIRIN 325 MG PO (08:03)
[2024-10-07] MEDS: CRESTOR 10 MG PO (08:03)
[2024-10-07] MEDS: TYLENOL 1000 MG PO ×3 (08:03→23:35)
[2024-10-07] MEDS: NORVASC 5 MG PO ×2 (08:03→19:52)
[2024-10-07] MEDS: MIRALAX 17 GRAMS PO (08:07)
[2024-10-07 08:08] LABS: Mean Corp Hgb Conc. 33.3 g/dL (33.0-37.0); Mean Corpuscular Hgb 27.8 pg (27.0-31.0); Mean Corpuscular Volume 83.3 fL (81.0-99.0); Mean Platelet Volume 11.2 fL (7.4-10.4); Platelet Count 212 10^3/uL (130-400); Red Blood Cell Count 4.68 10^6/uL (4.20-5.40); Red Cell Dist. Width 12.7 % (11.5-14.5); White Blood Cell Count 9.6 10^3/uL (4.8-10.8)
[2024-10-07 08:43] LABS: Blood Urea Nitrogen 23 mg/dl (7-17); Calcium 8.8 mg/dl (8.4-10.2); Carbon Dioxide 25 mmol/L (22-30); Chloride 103 mmol/L (98-107); Estimated Creatinine Clearance 70 ml/min; Glucose 89 mg/dl (70-99); Magnesium 2.2 mg/dl (1.6-2.3); Potassium 4.1 mmol/L (3.5-5.1); Sodium 140 mmol/L (135-145); eGFR > 60.00
--- NOTE | 2024-10-07 09:00 | W.PN.ORTHO ---
Today's Communication / Plan
-
Appreciate the Hospitalist's care, continue Tx
Dispo per CM, appreciate their efforts
Strict NWB LLE with device
PT/OT as able
Pain control with ice/elevation/narcs as needed
Reinforce dressings as needed
ASA 325mg daily for DVT prophylaxis x 4 weeks
Radiology a bit resistant for MRI left knee with ex-fix in place. May need to arrange outpatient
Orthopedics will continue to follow
Assessment
.
Distal Motor Intact: Yes
Dressing:
Clean, dry and intact. Ex-fix and dressings in place LLE
Assessment:
POD#2 closed reduction, ex-fix placement for left knee dislocation
Overall doing/feeling well
Calf soft
Palpable pulses distally. Good foot/ankle motion. Good sensation
Plan
.
Surgery / Date: Left knee spanning exfix 10/05/24 (Mika)
DVT Prophylaxis: Aspirin
Activity:
Out of bed. Strict NWB LLE
PT/OT
Discharge Plan: Other (per CM)
Subjective
.
.:
Patient resting comfortably in bed. no significant LLE pain. Reportsgood feeling distally in the ankle, foot, and toes. reports good motion.
Vital Signs and Labs
.
Vital Signs and Labs:
Lab Results
10/07/24 07:32
10/07/24 07:32
Temp Pulse Resp BP Pulse Ox
98.2 F 113 18 170/103 95
10/07/24 07:30 10/07/24 08:03 10/07/24 07:30 10/07/24 08:03 10/07/24 07:30
[2024-10-07 11:35] VITALS: BP 162/87
[2024-10-07 15:34] VITALS: BP 132/75
--- NOTE | 2024-10-07 16:58 | CON.MD ---
Consultation - Medical
-
Referring Provider:�Dr. Mitchell Gregg
Chief Complaint:�Left tib-fib dislocation after fall
�
History of Present Illness:�69-year-old female with PMH (as below) presented to [facility] on 10/05/2024 after a fall down 12 steps with a left tib-fib dislocation. She was getting her laundry at the top of the stairs and some laundry fell
out of a basket lift behind her leg and caused her to fall. Unable to reduce x 2 requiring an ORIF with external fixation. Nonweightbearing in the left lower extremity. Patient with uncontrolled hypertension. Orthopedics recommending MRI of the
left leg with external fixator being MRI compatible although radiology is hesitant to do it per notes. Overall patient is feeling anxious, with elevated blood pressure. She is not clear about how long she will have to continue to have the external
fixator on for. She would like to get home and manage at home and not go to a skilled rehab facility if possible.
�
Past Medical History:�HTN, HLD, GERD, colitis, uterine fibroids, thyroid nodule, thyroid cancer, anxiety, arthritis, obesity
Procedure History:�Left thyroidectomy, right thyroidectomy, section, bilateral carpal tunnel release
Family History:�None pertinent
�
Social History:�
Functional Level Premorbidly:�Independent with all activities�
Functional Level Currently:�Min assist transfers, min assist ambulating 10 feet x 1 with rolling walker. Min assist lower extremity dressing.
�
Tobacco:�Denies�
Alcohol:�Denies�
Drug use:�Denies�
�
Lives with:�Alone
24-hour assistance available:�No
Number of floors:�2
# steps to enter:�Full flight
# steps to second floor: Full flight
Potential First floor set up:�Possibly
Driving:�Yes
Occupation:�Retired
�
Allergies:�
Allergy/AdvReac Type Severity Reaction Status Date / Time
cefaclor [From Ceclor] Allergy Severe ITCHING Verified 10/05/24 11:19
AND HIVES
Penicillins Allergy Severe ITCHING Verified 10/05/24 11:19
AND HIVES
Sulfa (Sulfonamide Allergy Severe ITCHING Verified 10/05/24 11:19
Antibiotics) AND HIVES
levofloxacin [From Levaquin] Allergy Mild Itching Verified 10/05/24 11:19
vancomycin [From Vancocin] Allergy Mild RASH AND Verified 10/05/24 11:19
ITCHING
amoxicillin [From Augmentin] Allergy ITCHING Verified 10/05/24 11:19
AND HIVES
cephalexin [From Keflex] Allergy ITCHING Verified 10/05/24 11:19
AND HIVES
clavulanic acid Allergy ITCHING Verified 10/05/24 11:19
[From Augmentin] AND HIVES
shellfish derived Allergy ITCHING Verified 10/05/24 11:19
AND HIVES
�
Review of Systems:�
Constitutional: (x) abNormal _fatigue
Eye: (x) Normal _
Ear/Nose/Throat: (x) Normal _
Respiratory: (x) Normal _
Cardiovascular: (x) Normal _
Gastrointestinal: (x) abNormal _constipation
Genitourinary: (x) Normal _
Musculoskeletal: (x) abNormal _left leg pain
Integumentary: (x) abNormal _left leg incision
Neurologic: (x) Normal _denies any numbness or tingling in the left leg
Psychiatric: (x) abNormal _anxiety about having external fixator on, falling down the stairs, what is going to, the future
Endocrine: (x) Normal _
Hematologic/Lymphatic: (x) Normal _
Allergic/Immunologic: (x) Normal _
�
Medications:�
Active Current Visit Medication List
Category Date Time Status
Acetaminophen [Tylenol] Med 10/06/24 16:00 Active
1,000 mg PO Q8H
Amlodipine [Norvasc] Med 10/06/24 20:00 Active
5 mg PO BID
Aspirin Med 10/05/24 18:00 Active
325 mg PO DAILY
Bisacodyl [Dulcolax] Med 10/05/24 16:18 Active
10 mg RECTAL [id number] PRN
Docusate W/Senna [Senokot-S] Med 10/05/24 16:18 Active
1 tablet PO BIDPRN PRN
Flush (0.9% Sodium Chloride) [Flush (Nss)] Med 10/05/24 15:00 Active
See Dose Instructions IV PER PROTOCOL
HYDROmorphone [Dilaudid] Med 10/05/24 16:18 Active
1 mg IV Q4HPRN PRN
HydrALAZINE [Apresoline] Med 10/06/24 15:21 Active
5 mg IV Q4HPRN PRN
Levothyroxine [Synthroid] Med 10/06/24 06:00 Active
112 mcg PO DAILY@0600
Lisinopril [Zestril] Med 10/07/24 08:00 Active
40 mg PO DAILY
Ondansetron Injectable [Zofran] Med 10/05/24 16:18 Active
4 mg IV Q6HPRN PRN
Oxycodone [Roxicodone] Med 10/05/24 16:18 Active
5 mg PO Q4HPRN PRN
Polyethylene Glycol Powder [Miralax] Med 10/06/24 08:00 Active
17 grams PO DAILY
Polyethylene Glycol Powder [Miralax] Med 10/05/24 16:18 Active
17 grams PO DAILYPRN PRN
Rosuvastatin Calcium [Crestor] Med 10/06/24 08:00 Active
10 mg PO DAILY
�
Vitals:�
Temp Pulse Resp BP Pulse Ox
98.0 F 101 16 132/75 98
10/07/24 15:34 10/07/24 15:34 10/07/24 15:34 10/07/24 15:34 10/07/24 15:34
Height 5 ft 4 in
Actual Weight 99.8 kg
Body Mass Index (BMI) 37.8
�
Physical Exam:�
General Appearance/Observation: Well-developed, well-nourished female in no apparent distress.�
Pain/Comfort Assessment: Moderate left leg pain
Mood/Affect: Appropriate�
�
Integumentary/Operative Site:�External fixator sites not evaluated.
Eyes: Conjunctiva/Lids: normal���� Pupils: pupils equal round and reactive to light and Accommodation�
Ears/Nose/Throat: oral mucosa moist,� throat clear.������������ Lips/Teeth/Gums: normal�
Cardiovascular: Heart: regular, no murmur�
Pulses: dorsalis pedis 2+ right, 1+ on left more difficult with swelling
Respiratory: Respiratory Effort/Chest Expansion: normal������� Auscultation: Clear to auscultation bilaterally�
Gastrointestinal: abdomen not tender, no distension, normal abdominal bowel sounds
Genitourinary: No Turk�
Extremities:�Edema: Left lower extremity edema�cyanosis: None�Trophic�changes: None
�
Neurology Exam:
Orientation: Alert, Oriented to self, Time, Place�
Memory: Intact for recent medical concerns
Comprehension: Intact
Two step command: Intact
Cranial Nerves:
�� CNII:�Pupillary light reflex: Intact����
�� CN III, IV, : Extraocular muscles: Intact�
�� CN VII:�Facial movement: Symmetric
�� CN VIII:�Hearing: Normal
�� CN IX/X:�Speech & swallow: Normal,�Position of Uvula: Midline
�� CN XI:�Shoulder shrug: Symmetric
�� CN XII:�Tongue protrusion: Midline
Sensory:
�� Light touch: Intact in bilateral upper and lower extremities
�
Reflexes:
�� Biceps: 2+ bilaterally
�� Brachioradialis: 2+ bilaterally
�� Triceps: 2+ bilaterally
�� Patellar: 2+ right
�� Achilles: 2+ right
�� Babinski: Down going bilaterally
�� Clonus: None
�� Ike: Negative bilaterally�
Musculoskeletal: Motor: (Manual muscle scale 0-5)�
Muscle SA EF WE EE FF FA HF KE DF EHL PF
Right� 5 5 5 5 5 4 5 5 5 5
Left 5 5 5 5 5 4 NT NT 5 5
�
Tone: Normal in all extremities�
Range of Motion: Passively within normal limits in all extremities, except left hip and knee not tested.�
Lab Results
Laboratory Data
10/07/24 07:32
10/07/24 07:32
Total Bilirubin 0.4 mg/dl (0.2-1.3) 10/05/24 13:19
AST 28 U/L (14-36) 10/05/24 13:19
ALT 19 U/L (0-35) 10/05/24 13:19
Alkaline Phosphatase 99 U/L (38-126) 10/05/24 13:19
Total Protein 7.0 g/dl (6.3-8.2) 10/05/24 13:19
Albumin 4.1 g/dl (3.5-5.0) 10/05/24 13:19
�
Diagnostic Results:�as per HPI�
�
Assessment
69y/o F PMH (HTN, HLD, GERD, colitis, uterine fibroids, thyroid nodule, thyroid cancer, anxiety, arthritis, obesity) with 10/05/2024 fall with left tib-fib dislocation s/p 10/05/2024 ORIF with external fixation, nonweightbearing left lower extremity
complicated by uncontrolled hypertension--- resulting in ADL and ambulatory dysfunction.
�
Plan�
PM&R�PT/OT to increase independence with ADLs, improve balance, coordination, endurance, strength, mobility, community reintegration, decreased burden of care on others and family education.�
�
S/p ORIF with external fixator for bilateral left tib-fib dislocation 10/05/24: Monitor incision, pain control, incision care per orthopedics.�
Uncontrolled HTN: Amlodipine 10 mg twice daily, lisinopril 40 mg daily, monitor closely�
HLD: Statin�
History of thyroid cancer with thyroidectomy: levothyroxine�
�
Psych: Monitor mood, medications as needed.�
Skin: monitor for pressure sores/rashes/lesions.�
Pain: acetaminophen or oxycodone 5-10 mg as needed.� Stop IV Dilaudid
Bowel: Constipated. Colace and Senna, PRN bisacodyl.�
Bladder: Time void, PVRs, PRN straight cath.�
GI Prophylaxis: Pantoprazole�suggested on full dose aspirin
DVT Prophylaxis: Mechanical and full dose aspirin 325 mg daily for 4 weeks per orthopedics
Pulmonary: Incentive spirometry�
Morbid obesity: Continue to credit counselor patient about diet adjustments to control obesity. Body habitus and increased force to move body and extremities causes further difficulty with functional tasks.�
Safety: Continue to reinforce assistance with all transfers.�
Code Status:� Full code
Dispo�(date/plan/equipment needs): Home with family care.� Social history reviewed.�
Functional and Medical Goals:�Modified Independent with ADL�s, ambulation, transfers�
Discharge Destination:�Acute inpatient rehabilitation, depending on plan with external fixator. If she is going to have it on for a week and then have surgery for removal she would be better off doing this and then going to acute rehab after. If
it is good to be on longer she would benefit from a short acute inpatient rehabilitation stay to get her the equipment and training needed so that she can be safe for discharge to home.
A total of 60 minutes were spent with the patient preparing for the evaluation, obtaining history, performing examination and evaluation, counseling, data review, case management, care coordination, video and sound recorder, and EMR documentation.
�
Summary of recommendations:
-�Discharge Destination:�Acute inpatient rehabilitation, depending on plan with external fixator. If she is going to have it on for a week and then have surgery for removal she would be better off doing this and then going to acute rehab after. If
it is good to be on longer she would benefit from a short acute inpatient rehabilitation stay to get her the equipment and training needed so that she can be safe for discharge to home.
S/p ORIF with external fixator for bilateral left tib-fib dislocation 10/05/24: Monitor incision, pain control, incision care per orthopedics.�
Uncontrolled HTN: Amlodipine 10 mg twice daily, lisinopril 40 mg daily, monitor closely�
Skin: monitor for pressure sores/rashes/lesions.�
Pain: acetaminophen or oxycodone 5-10 mg as needed.� Stop IV Dilaudid
Bowel: Colace and Senna, PRN bisacodyl.�
Bladder: Time void, PVRs, PRN straight cath.�
GI Prophylaxis: Pantoprazole�suggested on full dose aspirin
DVT Prophylaxis: Mechanical and full dose aspirin 325 mg daily for 4 weeks per orthopedics
Pulmonary: Incentive spirometry�
Morbid obesity: Continue to credit counselor patient about diet adjustments to control obesity. Body habitus and increased force to move body and extremities causes further difficulty with functional tasks.�
�
Thank you for allowing me to care for your patient. Please contact me with any questions or concerns.
--- NOTE | 2024-10-07 18:38 | W.PN.HOSP.TC ---
Today's Communication/Plan
-
Blood pressure improved overall
Tran Rehab placement evaluation
Assessment / Plan
Assessment / Plan
Physical Exam
General: Not in acute distress
HEENT: Normocephalic
Respiratory: Clear to Auscultation Bilaterally
Cardiac: S1/S2 and Regular Rhythm
GI: Soft, Non Tender, Non Distended, Normal Bowel Sounds
Musculoskeletal: No Cyanosis. LLE surgical dressings in place. LLE appears neurovascularly intact.
Neuro: AAOx3
Psych: Calm
Assessment/Plan
#Acute lateral dislocation left tibia, fibula, patella status post closed reduction, external fixation of left knee for left knee dislocation under the direction of Dr. Brennan
-Failed 2 attempts at reduction under sedation at ER therefore needed to go to the operating room
-Continue Aspirin 325mg daily for DVT prophylaxis x4 weeks
-Strict non-weight bearing to left leg with device
-PT/OT
-Continue with pain management as needed
-Reinforce dressings as needed
-Pain control with ice/elevation/narcs as needed
-Reinforce dressings as needed
-Radiology does not want to do MRI left knee with ex-fix in place: may need to arrange outpatient as per orthopedics
-Orthopedics consulted, appreciate evaluation and recommendations
#Hypertension
-Concern that this is being worsened by anxiety and pain
-After much discussion with the patient on 10/07/24, her blood pressure has improved significantly
-Continue lisinopril 40 mg daily
-Added Amlodipine 5 mg BID
-As needed Hydralazine
-Low sodium diet
#Thyroid nodule/thyroid CA January 2021 with left thyroidectomy of left side, March 2022 thyroidectomy of right side due to cancerous nodule resulting in complete thyroidectomy.
-Continue Levothyroxine
#Hyperlipidemia
-Continue Crestor
#GERD
-No reported meds
#Anxiety
-No reported meds
#Obesity class I�BMI 37.8
Affects all aspects of care
Recommend low-fat diet
Additional Past Medical History
#Colitis
#Uterine fibroids
#Arthritis
DVT Prophylaxis: Aspirin 325 mg daily
Code Status: Full code
On October 07, 2024, I spent a lot of time discussing patient's case with patient, in efforts to help her relax, she has been very anxious which was driving her blood pressure up. She was grateful.
Total time spent today on caring for patient, seeing and examining patient, chart review, review of orders, documentations and time spent speaking with patient was 60 minutes.
Anticipated Discharge: 24 - 48 hours
Subjective/Interval History
-
Date of Service: October 07, 2024
Patient was seen and examined. She reported anxiety, denied any headache, numbness, tingling, chest pain or shortness of breath.
Objective Data
-
Labs:
Laboratory Results
10/07/24
07:32
WBC 9.6
Hgb 13.0
Hct 39.0
Plt Count 212
Sodium 140
Potassium 4.1
Chloride 103
Carbon Dioxide 25
BUN 23 H
Creatinine 0.9
Glucose 89
Calcium 8.8
Vital Signs:
Vital Signs
Temp Pulse Resp BP Pulse Ox
98.0 F 101 16 132/75 98
10/07/24 15:34 10/07/24 15:34 10/07/24 15:34 10/07/24 15:34 10/07/24 15:34
I&O
10/06/24 10/07/24 10/08/24
06:59 06:59 06:59
Intake Total 540 / 540 2300 / 2300
Output Total 1700 / 1700
Balance -1160 / -1160 2300 / 2300
[2024-10-07 19:00] VITALS: BP 172/86
[2024-10-07] MEDS: SENOKOT-S 1 TABLET PO (20:02)
[2024-10-07 23:00] VITALS: BP 123/81
[2024-10-08 00:17] VITALS: PULSE 96
[2024-10-08] MEDS: FLUSH (NSS) 2 FLUSH IV (03:01)
[2024-10-08] MEDS: APRESOLINE 5 MG IV (03:03)
[2024-10-08 03:06] VITALS: BP 168/94
[2024-10-08] MEDS: SYNTHROID 112 MCG PO (05:49)
--- NOTE | 2024-10-08 05:54 | W.PN.ORTHO ---
Today's Communication / Plan
-
69-year-old female POD #3 closed reduction, ex-fix placement for left knee dislocation performed on 10/05/[address] Brennan.
- Appreciate the Hospitalist's care, continue Tx.
- Dispo per CM, appreciate their efforts.
- Strict NWB LLE with device.
- PT/OT as able.
- Pain control per primary team. Ice and elevation for edema control.
- Reinforce dressings as needed.
- ASA 325mg daily for DVT prophylaxis x 4 weeks.
- Radiology a bit resistant for MRI left knee with ex-fix in place. May need to arrange as outpatient.
- Orthopedics will continue to follow.
Assessment
.
Distal Motor Intact: Yes
Dressing:
Clean, dry and intact. Ex-fix and dressings in place LLE.
Calf soft and nontender to palpation.
Palpable pulses distally. Brisk capillary refill. Good foot/ankle motion. Good sensation to light touch.
Assessment:
POD#3 closed reduction, ex-fix placement for left knee dislocation.
Plan
.
Surgery / Date: Left knee spanning exfix 10/05/24 (Mika)
DVT Prophylaxis: Aspirin
Activity:
Out of bed.
PT/OT.
Strict NWB LLE.
Discharge Information:
Appreciate CM.
Subjective
.
.:
Patient resting comfortably in bed. Denies any significant LLE pain; reports symptoms well controlled. Denies any new complaints or concerns at this time.
Vital Signs and Labs
.
Vital Signs and Labs:
Temp Pulse Resp BP Pulse Ox
97.8 F 100 16 168/94 97
10/08/24 03:06 10/08/24 03:06 10/08/24 03:06 10/08/24 03:06 10/08/24 03:06
[2024-10-08 06:34] LABS: Hematocrit 37.8 % (37.0-47.0); Hemoglobin 12.5 g/dL (12.0-16.0); Mean Corp Hgb Conc. 33.1 g/dL (33.0-37.0); Mean Corpuscular Hgb 28.1 pg (27.0-31.0); Mean Corpuscular Volume 84.9 fL (81.0-99.0); Mean Platelet Volume 10.6 fL (7.4-10.4); Platelet Count 210 10^3/uL (130-400); Red Blood Cell Count 4.45 10^6/uL (4.20-5.40); Red Cell Dist. Width 12.7 % (11.5-14.5); White Blood Cell Count 9.1 10^3/uL (4.8-10.8)
[2024-10-08 06:57] LABS: Blood Urea Nitrogen 22 mg/dl (7-17); Calcium 8.9 mg/dl (8.4-10.2); Carbon Dioxide 26 mmol/L (22-30); Chloride 103 mmol/L (98-107); Estimated Creatinine Clearance 78 ml/min; Glucose 87 mg/dl (70-99); Sodium 138 mmol/L (135-145); eGFR > 60.00
[2024-10-08 07:30] VITALS: BP 184/92
[2024-10-08] MEDS: NORVASC 5 MG PO (08:18)
[2024-10-08] MEDS: CRESTOR 10 MG PO (08:18)
[2024-10-08] MEDS: TYLENOL 1000 MG PO (08:19)
[2024-10-08] MEDS: MIRALAX 17 GRAMS PO (08:20)
[2024-10-08] MEDS: ZESTRIL 40 MG PO (08:20)
[2024-10-08] MEDS: ASPIRIN 325 MG PO (08:20)
--- NOTE | 2024-10-08 08:57 | CM ---
Addendum entered by Suzanne Redd 10/08/24 12:14:
Received tt from Vernell from [facility] - they can accept patient today
CM tt hospitalist
IMM explained & signed. In chart
PLAN: Discharge to [facility] today
[facility]
Report #: [phone]
Fax #: [phone]
Original Note:
PT/OT rec Acute Rehab
[facility]
PM&R consulted
Spoke with Vernell from [facility]
PLAN: [facility], pending bed availability
[2024-10-08 10:04] VITALS: BP 158/83
[2024-10-08 11:29] VITALS: BP 162/81
--- NOTE | 2024-10-08 12:24 | W.PN.HOSP.TC ---
Today's Communication/Plan
-
Discharge today
Assessment / Plan
Assessment / Plan
Physical Exam
General: Not in acute distress
HEENT: Normocephalic
Respiratory: Clear to Auscultation Bilaterally
Cardiac: S1/S2 and Regular Rhythm
GI: Soft, Non Tender, Non Distended, Normal Bowel Sounds
Musculoskeletal: No Cyanosis. LLE surgical dressings in place. LLE appears neurovascularly intact.
Neuro: AAOx3
Psych: Calm
Assessment/Plan
#Acute lateral dislocation left tibia, fibula, patella status post closed reduction, external fixation of left knee for left knee dislocation under the direction of Dr. Brennan
-Failed 2 attempts at reduction under sedation at ER therefore needed to go to the operating room
-Continue Aspirin 325mg daily for DVT prophylaxis x4 weeks
-Strict non-weight bearing to left lower extremity with device.
-PT/OT as able.
-Continue with pain management as needed
-Reinforce dressings as needed
-Pain control. Ice and elevation for edema control.
-Reinforce dressings as needed.
-Radiology does resistamt to do MRI left knee with ex-fix in place: may need to arrange outpatient as per orthopedics -- to be decided by orthopedics and MRI team
-Orthopedics consulted, appreciate evaluation and recommendations
#Hypertension
-Concern that this is being worsened by anxiety and pain
-After much discussion with the patient on 10/07/24, her blood pressure has improved somewhat with some quite high pressures
-Continue lisinopril 40 mg daily
-Continue Amlodipine 5 mg BID
-Will need further blood pressure monitoring and optimization once at [facility]
-Low sodium diet
#Thyroid nodule/thyroid CA January 2021 with left thyroidectomy of left side, March 2022 thyroidectomy of right side due to cancerous nodule resulting in complete thyroidectomy.
-Continue Levothyroxine
#Hyperlipidemia
-Continue Crestor
#GERD
-No reported meds
#Anxiety
-No reported meds
#Obesity class I�BMI 37.8
Affects all aspects of care
Recommend low-fat diet
Additional Past Medical History
#Colitis
#Uterine fibroids
#Arthritis
DVT Prophylaxis: Aspirin 325 mg daily
Code Status: Full code
On October 07, 2024, I spent a lot of time discussing patient's case with patient, in efforts to help her relax, she has been very anxious which was driving her blood pressure up. She was grateful.
On October 08, 2024, I spent a lot of time discussing patient's case (and discharge planning to [facility]) with patient in the presence of her brother, she was grateful.
More than 30 minutes spent in discharge including
Final examination of the patient
Summarizing hospital stay
Instructions for continuing care to all relevant caregivers
Preparation of discharge records, prescriptions, and referral forms
Total time spent (in minutes): 37
Anticipated Discharge: Today
Subjective/Interval History
-
Date of Service: October 08, 2024
Patient was seen and examined. She denied any new symptoms, however she was very worried about whether she could go to [facility]. emergency manager Suzanne Redd was present in the room and we both explained to her that we are working to get her to
[facility]. She was later accepted to [facility].
Objective Data
-
Labs:
Laboratory Results
10/08/24
05:56
WBC 9.1
Hgb 12.5
Hct 37.8
Plt Count 210
Sodium 138
Potassium 4.0
Chloride 103
Carbon Dioxide 26
BUN 22 H
Creatinine 0.8
Glucose 87
Calcium 8.9
Vital Signs:
Vital Signs
Temp Pulse Resp BP Pulse Ox
97.8 F 98 17 162/81 97
10/08/24 11:29 10/08/24 11:29 10/08/24 11:29 10/08/24 11:29 10/08/24 11:29
I&O
10/07/24 10/08/24 10/09/24
06:59 06:59 06:59
Intake Total 2300 / 2300 240 / 240
Balance 2300 / 2300 240 / 240
[2024-10-08] MEDS: SENOKOT 17.2 MG PO (13:27)
[2024-10-08 14:02] VITALS: BP 135/84
== END 2024-10-08 15:58 | DRG 489 ==
LOC: 2 SOUTH 14:19
PROVIDERS: Clinical Nurse Specialist Family Health; Nurse Practitioner; ADMITTING PHYSICIAN Internal Medicine; ATTENDING PHYSICIAN Hospitalist; CONSULT PHYSICIAN Physical Medicine & Rehabilitation; CONSULT PHYSICIAN Student in an Organized Health Care Education/Training Program; EMERGENCY PHYSICIAN Emergency Medicine
PROC: 0QSK35Z Reposition Left Fibula with External Fixation Device, Percutaneous Approach (ICD-10-PCS; 2024-10-06)
PROC: 0QSH35Z Reposition Left Tibia with External Fixation Device, Percutaneous Approach (ICD-10-PCS; 2024-10-06)
PROC: 0QS Lower Bones, Reposition (ICD-10-PCS; 2024-10-06)
DX: S83.115A Anterior dislocation of proximal end of tibia, left knee, initial encounter (principal); W10.9XXA Fall (on) (from) unspecified stairs and steps, initial encounter; I10 Essential (primary) hypertension; E78.5 Hyperlipidemia, unspecified; K21.9 Gastro-esophageal reflux disease without esophagitis; F41.9 Anxiety disorder, unspecified; E66.811 Obesity, class 1; Z68.37 Body mass index [BMI] 37.0-37.9, adult; S83.005A Unspecified dislocation of left patella, initial encounter; Z59.89 Other problems related to housing and economic circumstances
CPT/HCPCS: 27550; 73560; 76000; 80048; 80053; 83735; 85025; 85027; 94660; 96374; 97116; 97162; 97166; 97530; 97535; 99152; 99285; C1713

== ENCOUNTER → 2024-10-24 12:26 | Outpatient (REF) | payer MEDICARE, OTHER, SELFPAY ==
[2024-10-24 13:01] LABS: Hematocrit 41.2 % (37.0-47.0); Hemoglobin 13.2 g/dL (12.0-16.0); Mean Corpuscular Hgb 27.3 pg (27.0-31.0); Mean Corpuscular Volume 85.3 fL (81.0-99.0); Platelet Count 247 10^3/uL (130-400); Red Blood Cell Count 4.83 10^6/uL (4.20-5.40); Red Cell Dist. Width 13.1 % (11.5-14.5); White Blood Cell Count 5.4 10^3/uL (4.8-10.8)
[2024-10-24 14:37] LABS: Blood Urea Nitrogen 23 mg/dl (7-17); Calcium 9.3 mg/dl (8.4-10.2); Carbon Dioxide 25 mmol/L (22-30); Chloride 104 mmol/L (98-107); Glucose 83 mg/dl (70-99); Potassium 4.4 mmol/L (3.5-5.1); Sodium 137 mmol/L (135-145); eGFR > 60.00
== END ==
LOC: CLAB 12:26
PROVIDERS: ATTENDING PHYSICIAN Family Medicine
DX: Z47.1 Aftercare following joint replacement surgery (principal); E78.5 Hyperlipidemia, unspecified
CPT/HCPCS: 36415; 80048; 85027

== ENCOUNTER 2024-11-20 06:44 | Day surgery (SDC) | payer MEDICARE, OTHER, SELFPAY ==
[2024-11-20] VITALS (8 sets, daily range): BP systolic 154–181; BP diastolic 82–97; BMI 35.6
[2024-11-20] MEDS: TYLENOL 1000 MG PO (14:12)
[2024-11-20] MEDS: NORMOSOL-R/PLASMALYTE-A 1000 IV (14:13)
[2024-11-20] MEDS: DEMEROL 12.5 MG IV (19:40)
--- NOTE | 2024-11-20 19:43 | W.IMMPOSTOP ---
Surgical Immed Post Op Note
-
Primary Surgeon: Juan Luis Brennan MD
Assisting Surgeon:
Pre-op Diagnosis: left knee dislocation s/p application of external fixator
Post-op Diagnosis: left knee dislocation s/p application of external fixator
Procedure Performed: left knee spanning external fixator removal
Anesthesia Type: general
Specimen / Cultures: none
Estimated Blood Loss: 1mL
Complications: none apparent
Operative Findings: increased opening to varus, valgus, posterior drawer stress; 0-30 degrees knee flexion
Operative dictation # [id number]
[2024-11-20] MEDS: DILAUDID 0.25 MG IV (20:06)
== END 2024-11-20 20:50 | disposition home or self-care (01) ==
LOC: SDS 06:44
PROVIDERS: ATTENDING PHYSICIAN Student in an Organized Health Care Education/Training Program
DX: S83.105A Unspecified dislocation of left knee, initial encounter (principal); X58.XXXA Exposure to other specified factors, initial encounter
CPT/HCPCS: 20694; 73560; 76000; 93005

== ENCOUNTER → 2025-02-03 16:55 | Outpatient (REF) | payer MEDICARE, OTHER, SELFPAY | LOC: RAD 16:55 | PROVIDERS: ATTENDING PHYSICIAN Family Medicine | DX: M79.89 Other specified soft tissue disorders (principal); I10 Essential (primary) hypertension; Z98.890 Other specified postprocedural states; R60.0 Localized edema | CPT/HCPCS: 93970 ==

== ENCOUNTER → 2025-06-05 15:12 | Outpatient (REF) | payer MEDICARE, OTHER, SELFPAY | LOC: HWRAD 15:12 | PROVIDERS: ATTENDING PHYSICIAN Internal Medicine Endocrinology, Diabetes & Metabolism; FAMILY PHYSICIAN Family Medicine | DX: Z85.850 Personal history of malignant neoplasm of thyroid (principal); E03.9 Hypothyroidism, unspecified | CPT/HCPCS: 76536 ==

== ENCOUNTER → 2025-07-07 12:23 | Outpatient (REF) | payer MEDICARE, OTHER, SELFPAY | LOC: WDC 12:23 | PROVIDERS: ATTENDING PHYSICIAN Obstetrics & Gynecology Gynecology; FAMILY PHYSICIAN Family Medicine | DX: Z12.31 Encounter for screening mammogram for malignant neoplasm of breast (principal) | CPT/HCPCS: 77063; 77067 ==